=== PATIENT | male | born 1990 | race Caucasian/White ===

== ENCOUNTER → 2021-06-11 | Outpatient (CLI) | payer OTHER | LOC: M.ULTRA 13:40 | PROVIDERS: ATTEND Family Medicine | DX: I86.1 Scrotal varices (principal); N43.2 Other hydrocele; N50.89 Other specified disorders of the male genital organs ==

== ENCOUNTER 2021-08-27 21:28 | Emergency (ER) | payer OTHER ==
[~2021-08-27] VITALS: Ht 170.2 cm; Wt 100.2 kg
[2021-08-27] MEDS ORDERED: L-LYSINE500 M1 PO (21:41)
[2021-08-27] MEDS ORDERED: HYDROXYCUT (21:41)
[2021-08-27] MEDS ORDERED: ST. JOHN'S WOR300 MG PO (21:42)
[2021-08-27] MEDS ORDERED: APPLE CIDER VI300 MG PO (21:42)
[2021-08-27] MEDS ORDERED: NIACIN SR 250250 MG PO (21:42)
[2021-08-27 23:55] LABS: URINE BILIRUBIN NEGATIVE (Negative); URINE BLOOD NEGATIVE (Negative); URINE CLARITY CLEAR; URINE COLOR YELLOW; URINE GLUCOSE-RANDOM 1+ (Negative); URINE KETONES NEGATIVE (Negative); URINE LEUKOCYTES-REFLEX 1+ (Negative); URINE NITRITE-REFLEX NEGATIVE (Negative); URINE PROTEIN NEGATIVE (Negative); URINE SPECIFIC GRAVITY 1.025 (1.005-1.030); URINE UROBILINOGEN 0.2 E.U./dl (0.2-1.0)
[2021-08-28 00:20] LABS: HYALINE CASTS 0-3 Few /LPF (None Seen); MUCUS 0-3 Light strn/LPF (None Seen); SQUAMOUS 0-3 Few /LPF (0-3)
[2021-08-28 00:21] LABS: CK-MB MASS 4.4 ng/mL (<0.5-3.6)
[2021-08-28 00:21] LABS: BACTERIA-REFLEX 1-9 Few /HPF (None Seen); CRYSTALS None Seen /LPF (None Seen); URINE RBC 0-2 Rare /HPF (0-2); URINE WBC-REFLEX 0-5 Rare /HPF (0-5)
[2021-08-28 01:14] LABS: CALCIUM 9.2 mg/dL (8.5-10.1); CREATININE 0.9 mg/dL (0.6-1.3); POTASSIUM 4.4 mmol/L (3.5-5.1)
[2021-08-28 01:19] LABS: ALBUMIN 4.2 g/dL (3.4-5.0); TOTAL BILIRUBIN 0.2 mg/dL (<0.1-1.0); TOTAL PROTEIN 7.9 g/dL (6.4-8.2)
[2021-08-28] MEDS ORDERED: TORADOL 10 MG T10 MG PO (01:44)
[2021-08-28] MEDS ORDERED: HYDROCODON-ACE1 EAC7 PO (01:44)
[2021-08-28 02:01] VITALS: BP 134/78
--- NOTE | 2021-08-28 13:11 | EKG ---
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
== END 2021-08-28 02:02 | disposition home or self-care (01) ==
LOC: M.ERS 21:28
PROVIDERS: Nurse Practitioner Family; Personal Emergency Response Attendant
DX: M79.10 Myalgia, unspecified site (principal); R79.82 Elevated C-reactive protein (CRP); Z90.89 Acquired absence of other organs; Z79.899 Other long term (current) drug therapy